=== PATIENT | female | born 2000 | race Caucasian/White ===

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

== ENCOUNTER 2022-04-05 06:59 | Emergency (ER) | payer MEDICAID, SELFPAY ==
--- NOTE | 2022-04-05 07:05 | W.ED.GENADLT ---
HPI - General Adult General: Chief complaint: General Medical Stated complaint: N/V from new medicine Time Seen by Provider: 04/05/22 07:05 History of Present Illness: Ms. Campoverde is a 21-year-old lady with history of anxiety disorder presenting to the emergency department due to GI symptoms. She reports starting venlafaxine for anxiety yesterday morning and since that time has noticed multiple episodes of watery diarrhea associated with abdominal cramping and generalized malaise with nausea. Has had 1 episode of chills however no measured fevers. No respiratory symptoms. Intensity symptoms moderate. Course has persisted. No history of abdominal surgeries. No other specific changes in health, exacerbating, or alleviating factors identified. Onset (ago): hour(s) Location: abdomen Radiation: non-radiation Severity: moderate Quality: other (Cramping) Pain Consistency: intermittent Associated symptoms: Reports nausea and other (Diarrhea) Review of Systems General: Reports: 10 or more systems reviewed and unremarkable except in HPI and below GI: Reports: nausea PFSH ED PFSH: Medical History 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--- has neurologist in [facility] History of anxiety Irritable bowel syndrome with constipation and diarrhea Migraine without aura No pertinent past medical history neghx: htn,dm,thyroid,dvt/pe,herpes ---denies partner with herpes Surgical History No pertinent past surgical history Family History Grandfather Heart disease Paternal Stroke Paternal Mother Hypertension Denies family history of Colon cancer Ovarian cancer Diabetes Breast cancer Bleeding disorder Uterine cancer Thyroid disease Social History Smoking and tobacco status: current every day smoker (daily vape with nicotine) Alcohol intake: never Physical Exam Const: COMMON NORMALS: alert GENERAL APPEARANCE: cooperative and well developed HENMT: COMMON NORMALS: normocephalic and atraumatic HEAD & SCALP: normocephalic and atraumatic Eye: COMMON NORMALS: conjunctivae normal CONJUNCTIVA: Yes conjunctivae normal SCLERA: sclerae normal Neck/C-Spine: COMMON NORMALS: supple GENERAL: Yes trachea midline Resp: COMMON NORMALS: clear to auscultation bilaterally EFFORT & INSPECTION: Yes able to speak in complete sentences AUSCULTATION: clear to auscultation bilaterally Cardio: COMMON NORMALS: regular rhythm RATE: tachycardic RHYTHM: regular rhythm GI: COMMON NORMALS: Soft to palpation PALPATION: Yes Soft to palpation and No Tenderness to palpation present (GI) Extremity: GENERAL: Yes normal exam except as noted and No edema Neuro: COMMON NORMALS: moves all extremities SENSORIUM/ORIENTATION: Yes alert and No Orientation impaired Psych: COMMON NORMALS: mental status grossly normal and Normal thought process present THOUGHT PROCESS: Normal thought process present Course Vital Signs: Vital signs: Vital Signs Temperature 97.6 F 04/05/22 07:17 Pulse Rate 85 04/05/22 09:33 Respiratory Rate 16 04/05/22 07:17 Blood Pressure 117/58 04/05/22 09:33 Pulse Oximetry 96 04/05/22 09:33 Oxygen Delivery Me thod 04/05/22 08:19 [facility] - General Adult Medical Decision Making 21-year-old female presenting with GI concerns in the context of recent started medication. Mild tachycardia noted on initial exam, patient is nontoxic. Laboratory studies with unremarkable hematologic panel, metabolic panel with perhaps mild evidence of dehydration, glucose low and patient able to tolerate p.o. intake. hCG and COVID-negative. Patient feels significantly improved with Toradol, fluids, Zofran. Given improvement in based on physical exam and provided history I do not feel that imaging is required at this time. Most likely etiology of symptoms is unclear, perhaps medication side effect versus viral syndrome. The results of ED evaluation were discussed with the patient including prescriptions and/or symptomatic cares (if applicable) including appropriate and responsible use, followup plan, and return precautions. The patient verbalized understanding and felt safe for discharge. Medical Records I reviewed the patient's medical records. Lab Data I reviewed the patient's lab results. : 04/05/22 07:38 04/05/22 07:38 Laboratory Results WBC 8.6 10^3/uL (4.5-13.0) 04/05/22 07:38 RBC 4.78 10^6/uL (4.1-5.3) 04/05/22 07:38 Hgb 14.7 g/dL (11.5-15.3) 04/05/22 07:38 Hct 43.4 % (37.0-47.0) 04/05/22 07:38 MCV 90.8 fl (81-99) 04/05/22 07:38 MCH 30.8 pg (28.0-34.0) 04/05/22 07:38 MCHC 33.9 g/dL (30.0-36.0) 04/05/22 07:38 RDW 11.7 % (12.1-15.1) L 04/05/22 07:38 Plt Count 357 10^3/cmm (130-400) 04/05/22 07:38 MPV 9.1 fL (7.4-10.4) 04/05/22 07:38 Neut % (Auto) 83.8 % 04/05/22 07:38 Lymph % (Auto) 12.1 % 04/05/22 07:38 [place] % (Auto) 3.0 % 04/05/22 07:38 Eos % (Auto) 0.1 % 04/05/22 07:38 Baso % (Auto) 0.5 % 04/05/22 07:38 Neut # (Auto) 7.19 10^3/uL (1.8-8.0) 04/05/22 07:38 Lymph # (Auto) 1.0 10^3/uL (1.5-6.5) L 04/05/22 07:38 [place] # (Auto) 0.3 10^3/uL (0.2-0.9) 04/05/22 07:38 Eos # (Auto) 0.0 10^3/uL (0.0-0.8) 04/05/22 07:38 Baso # (Auto) 0.0 10^3/uL (0.0-0.1) 04/05/22 07:38 Nucleated RBC % (auto) 0 % 04/05/22 07:38 Nucleated RBCs # 0.0 /100WBC 04/05/22 07:38 Sodium 138 mmol/L (136-145) 04/05/22 07:38 Potassium 4.0 mmol/L (3.5-5.1) 04/05/22 07:38 Chloride 101 mmol/L (98-107) 04/05/22 07:38 Carbon Dioxide 18 mmol/L (22-29) L 04/05/22 07:38 Anion Gap 23.0 (5-19) H 04/05/22 07:38 BUN 14 mg/dL (6-20) 04/05/22 07:38 Creatinine 0.5 mg/dL (0.5-0.9) 04/05/22 07:38 GFR Calculation 157.3 mL/min (90-130) H 04/05/22 07:38 Glucose 59 mg/dL (65-115) L 04/05/22 07:38 Calculated Osmolality 284 mOsm/kg (285-295) L 04/05/22 07:38 Calcium 9.5 mg/dL (8.5-10.5) 04/05/22 07:38 Total Bilirubin 0.8 mg/dL (0.15-1.2) 04/05/22 07:38 AST 18 U/L (0-32) 04/05/22 07:38 ALT 14 U/L (0-33) 04/05/22 07:38 Alkaline Phosphatase 84 U/L (35-105) 04/05/22 07:38 Total Protein 8.3 g/dL (6.6-8.7) 04/05/22 07:38 Albumin 5.0 g/dL (3.5-5.2) 04/05/22 07:38 Globulin 3.3 g/dL (1.3-4.6) 04/05/22 07:38 Lipase 27 U/L (13-60) 04/05/22 07:38 HCG, Qual Negative (Negative) 04/05/22 07:38 SARS-CoV-2 Ag (Rapid) negative (Negative) 04/05/22 07:40 Discharge Plan Discharge Patient Disposition: Home Clinical Impression: Abdominal pain, Nausea, Diarrhea, Dehydration Condition: Stable Prescriptions: No Action venlafaxine [Effexor XR] 37.5 mg capsule,extended release 24hr 37.5 mg PO DAILY Qty: 30 0RF Discharge Orders: Discharge ED (Routine); Ordered 04/05/22 Ordered By: Yonas Vlilegas Referrals: Trina Florence DO [Primary Care Provider] - Discharge Diet: Advance as tolerated and Clear Liquid Discharge Activity: Increase activity as tolerated Patient Instructions: Dehydration (ED), Abdominal Pain (ED) Activity Restrictions/Additional Instructions: Thank you for visiting the emergency department. You were seen and evaluated for abdominal discomfort, nausea, and diarrhea. The exact cause of your symptoms is unclear though may be related to either medication or viral syndrome. Based on ED evaluation and improvement with treatment I do believe that outpatient management is appropriate. Please follow-up with your primary care provider. Please also ensure that you are staying hydrated as labs did show some evidence of dehydration. Return to the emergency department for worsening symptoms despite treatment, fevers, inability to tolerate oral intake, worsening abdominal pain, right lower quadrant or pelvic pain, or anything else that you are concerned about a feel needs emergency department evaluation. Coding Level of Care Code ED [employer] for Romi Fwd Exam Comprehensive
[2022-04-05 07:17] VITALS: BP 116/66; PULSE 106; RESP 16; TEMP 36.4; O2SAT 97; BMI 16.9
[2022-04-05] MEDS: sodium chloride 0.9% 1,000 ML 999 ML IV (07:54)
[2022-04-05] MEDS: ondansetron 2 mg/ML SDV 2 mL 4 MG IVP (07:55)
[2022-04-05 08:05] LABS: Basophils % 0.5 %; Eosinophils % 0.1 %; Hematocrit 43.4 % (37.0-47.0); Hemoglobin 14.7 g/dL (11.5-15.3); Lymphocytes % 12.1 %; Mean Corpuscular HGB Conc 33.9 g/dL (30.0-36.0); Mean Corpuscular Hemoglobin 30.8 pg (28.0-34.0); Mean Corpuscular Volume 90.8 fl (81-99); Mean Platelet Volume 9.1 fL (7.4-10.4); Monocytes # 0.3 10^3/uL (0.2-0.9); Neutrophils # 7.19 10^3/uL (1.8-8.0); Neutrophils % 83.8 %; Nucleated Red Blood Cells % 0 %; Platelet Count 357 10^3/cmm (130-400); Red Blood Count 4.78 10^6/uL (4.1-5.3); Red Cell Distribution Width 11.7 % (12.1-15.1); White Blood Count 8.6 10^3/uL (4.5-13.0)
[2022-04-05 08:19] VITALS: BP 114/62; O2SAT 99
[2022-04-05 08:19] LABS: HCG, Serum Qual Negative (Negative)
[2022-04-05 08:26] LABS: SARS Covid-2 Antigen negative (Negative)
[2022-04-05 08:27] LABS: Alanine Aminotransferase 14 U/L (0-33); Alkaline Phosphatase 84 U/L (35-105); Aspartate Amino Transferase 18 U/L (0-32); Blood Urea Nitrogen 14 mg/dL (6-20); Calcium 9.5 mg/dL (8.5-10.5); Carbon Dioxide 18 mmol/L (22-29); Chloride 101 mmol/L (98-107); Globulin 3.3 g/dL (1.3-4.6); Glomerular Filtration Rate 157.3 mL/min (90-130); Glucose 59 mg/dL (65-115); Lipase 27 U/L (13-60); Osmolality Calculated 284 mOsm/kg (285-295); Sodium 138 mmol/L (136-145); Total Bilirubin 0.8 mg/dL (0.15-1.2); Total Protein 8.3 g/dL (6.6-8.7)
--- NOTE | 2022-04-05 08:50 | PC.NURSE ---
pt given juice for PO challenge, Dr. Villegas aware of pt's blood sugar.
[2022-04-05 09:33] VITALS: BP 117/58; PULSE 85; O2SAT 96
== END 2022-04-05 09:35 | disposition home or self-care (01) ==
PROVIDERS: Emergency Provider Emergency Medicine; PCP Family Medicine
DX: R10.9 Unspecified abdominal pain (principal); R19.7 Diarrhea, unspecified; R11.0 Nausea; E86.0 Dehydration; Z20.822 Contact with and (suspected) exposure to COVID-19; F17.290 Nicotine dependence, other tobacco product, uncomplicated
CPT/HCPCS: 80053; 83690; 84703; 85025; 87426; 96361; 96374; 99284; J2405; J7030

== ENCOUNTER 2022-11-03 10:17 | Outpatient (CLI) | payer MEDICAID, SELFPAY ==
--- NOTE | 2022-11-03 10:27 | US_ITS ---
WS: [id number] Exam: US OB <= 14 weeks fetus [id number] Date/Time of Exam: 11/03/2022 10:29 AM Reason For Exam: EXXPOSURE TO TERATOGEN. SUPERVISION OF OTHER HIGH RISK NUMBER: One PRESENTATION: Variable CARDIAC ACTIVITY: 167 MOVEMENT: Satisfactory AMNIOTIC FLUID VOLUME: Subjectively normal PLACENTA: Not applicable ESTIMATED GESTATIONAL AGE: 11w3d Bootjack-rump length measurements average 4.5 cm consistent with gestational age of 11 weeks 3 days Not applicable US/US OB <= 14 weeks fetus [id number] IMPRESSION: Viable intrauterine with single fetus estimated at 11w3d 05/22/2023.
== END 2022-11-03 10:18 | disposition home or self-care (01) ==
LOC: RAD 10:18
PROVIDERS: PCP Family Medicine; Visit Provider Family Medicine
DX: O09.891 Supervision of other high risk pregnancies, first trimester (principal); O35.8XX0 Maternal care for other (suspected) fetal abnormality and damage, not applicable or unspecified; Z3A.11 11 weeks gestation of pregnancy
CPT/HCPCS: 76801

== ENCOUNTER 2022-12-25 12:37 | Outpatient (CLI) | payer MEDICAID, SELFPAY ==
--- NOTE | 2022-12-25 12:53 | US_ITS ---
WS: [id number] ULTRASOUND OB COMPLETE TECHNIQUE: Complete ultrasound. CLINICAL INFORMATION: ANATOMY CHECK/HX OF LABOR/HIGH RISK COMPARISON: November 03, 2022 FINDINGS: Cervix appears long and closed measuring 4.3 cm. Single interuterine gestation is identified with breech presentation. Placenta is anterior. Placenta grade 0. Normal amniotic fluid volume. cardiac activity: 147 BPM. AGA: 19w0d PETER by ultrasound: 05/21/2023 Estimated weight: 278 g; 0 lbs. 10 oz. BDP: 4.2 cm = 18w6d HC: 15.9 cm = 18w5d AC: 14.2 cm = 19w4d FEMUR LENGTH: 2.9 cm = 18w6d Anatomic survey: Limited evaluation of the outflow tracts. Anatomic survey is otherwise normal. Normal stomach. Kidneys and bladder are normal. Normal 3 vessel cord. Normal 3 vessel cord insertion. Normal 4 chamber heart. Normal spine. Intracranial contents are normal. Normal posterior fossa and cisterna magna. US/US OB >= 14 weeks fetus [id number] IMPRESSION: 1. Single intrauterine with visualized cardiac activity. AGA 19w0d w ith PETER 05/21/2023. 2. Placenta is anterior. No evidence of abruption or previa. 3. presentation is breech. 4. Limited evaluation of the ventricular outflow tracts. anatomic survey is otherwise normal. 5. Normal amniotic fluid volume.
== END 2022-12-25 12:38 | disposition home or self-care (01) ==
LOC: RAD 12:38
PROVIDERS: PCP Family Medicine; Visit Provider Family Medicine
DX: O09.891 Supervision of other high risk pregnancies, first trimester (principal); Z87.51 Personal history of pre-term labor; Z3A.00 Weeks of gestation of pregnancy not specified
CPT/HCPCS: 76805

== ENCOUNTER 2023-02-02 07:28 | Outpatient (CLI) | payer MEDICAID, SELFPAY ==
--- NOTE | 2023-02-02 07:39 | US_ITS ---
WS: [id number] LIMITED OBSTETRICAL ULTRASOUND HISTORY: HIGH RISK -2ND TRIMESTER/INCOMPLETE ANATOMY SCAN COMPARISON: 11/03/2022 and 12/25/2022 Presentation: Vertex. Cervix: Closed and normal length. Placenta: Anterior, no previa or abruption. Grade: 1 HEART: FHR of 157 BPM. measurements: BPD = 6.1 cm = 24w6d; HC = 22.2 cm = 24w2d; AC = 20.4 cm = 25w0d; FL = 4.5 cm = 24w5d; Normal amniotic fluid. EFW: 741 g; 50th percentile AGA by ultrasound: 24w5d PETER by ultrasound: 05/20/2023 Biometry is concordant. No growth asymmetry. Additional imaging of the heart is submitted. Normal four-chamber heart. Normal LVOT and RVOT. Normal three-vessel view. Very good demonstration of the heart. IMPRESSION: 1. Single intrauterine gestation of 24 weeks 5 days with an EDC of 05/20/2023. 2. Normal growth since the first trimester ultrasound. 3. Normal imaging of the heart.
== END 2023-02-02 07:29 | disposition home or self-care (01) ==
LOC: RAD 07:29
PROVIDERS: PCP Family Medicine; Visit Provider Family Medicine
DX: O09.892 Supervision of other high risk pregnancies, second trimester (principal); Z3A.24 24 weeks gestation of pregnancy
CPT/HCPCS: 76816

== ENCOUNTER 2023-04-23 06:31 | Outpatient (CLI) | payer MEDICAID, SELFPAY ==
[2023-04-23 06:40] VITALS: BP 116/73; PULSE 81; TEMP 35.8
[2023-04-23 06:52] VITALS: BMI 21.3
[2023-04-23 06:52] LABS: Nitrazine Paper, PH Negative
[2023-04-23 07:00] VITALS: BP 108/67; PULSE 87; TEMP 35.9
[2023-04-23 07:02] VITALS: BP 108/67; PULSE 87; TEMP 35.9
== END 2023-04-23 07:06 | disposition home or self-care (01) ==
LOC: OPOB 06:31 → OBGYN 06:32
PROVIDERS: PCP Family Medicine; Visit Provider Family Medicine
DX: O26.899 Other specified pregnancy related conditions, unspecified trimester (principal); Z3A.00 Weeks of gestation of pregnancy not specified; N89.8 Other specified noninflammatory disorders of vagina
CPT/HCPCS: 59025; 83986; 99211

== ENCOUNTER 2023-04-29 03:26 | Inpatient (IN) | payer MEDICAID, SELFPAY ==
[2023-04-29] VITALS (134 sets, daily range): BP systolic 76–129; BP diastolic 46–94; PULSE 54–137; RESP 16–18; TEMP 36.2–37.1; O2SAT 86–100; BMI 20.6
[2023-04-29 01:55] LABS: Basophils # 0.1 10^3/uL (0.0-0.1); Basophils % 0.5 %; Eosinophils # 0.1 10^3/uL (0.0-0.8); Eosinophils % 0.5 %; Hematocrit 35.6 % (36-47); Lymphocytes # 3.1 10^3/uL (0.8-4.8); Lymphocytes % 23.8 %; Mean Corpuscular HGB Conc 32.3 g/dL (30-55); Mean Corpuscular Hemoglobin 28.5 pg (27-33); Mean Corpuscular Volume 88.1 fl (85-98); Mean Platelet Volume 9.8 fL (7.4-10.4); Monocytes # 0.9 10^3/uL (0.2-0.9); Monocytes % 6.9 %; Neutrophils # 8.63 10^3/uL (1.8-7.7); Neutrophils % 66.6 %; Nucleated Red Blood Cells % 0 %; Platelet Count 394 10^3/cmm (157-399); Red Blood Count 4.04 10^6/uL (3.85-5.65); Red Cell Distribution Width 12.5 % (12.1-15.1); White Blood Count 12.95 10^3/uL (3.29-11.43)
[2023-04-29 02:27] LABS: Amphetamines Screen Urine Negative (Negative); Barbiturates Screen Urine Negative (Negative); Benzodiazepines Screen Urine Negative (Negative); Cocaine Screen Urine Negative (Negative); Opiate Screen Urine Negative (Negative); PCP Screen Urine Negative (Negative); THC Screen Urine Negative (Negative)
[2023-04-29] MEDS: lactated ringers 1,000 ML 999 ML IV ×3 (04:40→07:25)
--- NOTE | 2023-04-29 05:53 | P.ANESASSM_ITS ---
Pre-Anesthetic Assessment Height/Weight: Height 1.57 m Weight 51.256 kg Temp Pulse Resp BP Pulse Ox O2 Del Method 97.1 F L 73 16 114/56 100 Room Air 04/29/23 00:05 04/29/23 05:50 04/29/23 00:05 04/29/23 05:50 04/29/23 05:47 04/29/23 01:09 Familial anesthetic complications: none Was Beta Aris taken within 24 hours: N/A Was Clonidine taken within 24 hours: N/A Social No alcohol and No tobacco Exam alert, oriented x 3, clear to auscultation bilaterally and regular rate & rhythm Airway Submandibular: within normal limits Cervical ROM: within normal limits Mallampati: Class II Dentition: full GI Gastroesophageal Reflux Disease Neuropsych Bipolar Anesthetic Plan ASA status: 2 Anesthesia: Regional (specify below) (Labor Epidural) Medications/Allergies Home Medications Medication Instructions Recorded Confirmed Last Taken Type 1 tab PO DAILY 04/23/23 04/29/23 04/28/23 History Allergies Allergy/AdvReac Type Severity Reaction Status Date / Time No Known Allergies Allergy Verified 04/29/23 01:12 Current Medications Generic Name Dose Route Start Last Admin Trade Name Freq PRN Reason Stop Dose Admin Lactated Ringer's 1,000 mls @ 999 mls/hr 04/29/23 04:16 04/29/23 05:41 Lactated Ringers IV 999 mls/hr .Q1H1M PRN Administration See label comments [facility] Anesthesia Medical History 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--- has neurologist in [facility] History of anxiety Irritable bowel syndrome with constipation and diarrhea Migraine without aura No pertinent past medical history neghx: htn,dm,thyroid,dvt/pe,herpes ---denies partner with herpes Surgical History No pertinent past surgical history Family History Grandfather Heart disease Paternal Stroke Paternal Mother Hypertension Denies family history of Colon cancer Ovarian cancer Diabetes Breast cancer Bleeding disorder Uterine cancer Thyroid disease Social History (Reviewed 08/25/22 @ 15:24 by TEJAS Giron Smoking and tobacco/nicotine status: current every day tobacco/nicotine user (daily vape with nicotine) Alcohol intake: never Substance/Drug Use: never Female Reproductive History : 2 Data Anesthesia 04/29/23 01:28 Short CBC 04/29/23 Range/Units 01:28 WBC 12.95 H (3.29-11.43) 10^3/uL Hgb 11.50 (11.27-16.99) g/dL Hct 35.6 L (36-47) % MCV 88.1 (85-98) fl Plt Count 394 (157-399) 10^3/cmm Neut % (Auto) 66.6 % Neut # (Auto) 8.63 H (1.8-7.7) 10^3/uL Blood Bank 04/29/23 01:28 Blood Type A Positive Rho(D) Type Rh positive Antibody Screen Negative Cardiac Studies: No Data to Display Anesthesia Procedures Epidural Time Out Performed: Yes Consents Signed: Procedure Consent Consent: requested by attending/covering physician, from patient, risks and benefits reviewed and patient agrees to proceed Lumbar Level: L3-L4 Epidural position: sitting Epidural procedure: sterile prep of area, 1% lidocaine to numb the area, 18 g needle, neg for paresthesia, test dose given, 1.5% xylocaine 1:200k epi, placed PCEA, sterile dressing applied and 0.2% Ropiavacaine @ mls/hr (10) Additional Comments: ORLIN at 3cm, cath at 8cm, bolused 5mls of 2% lido PF
[2023-04-29] MEDS: ROPivacaine syringe 100 MG/50 ML SYRINGE 10 MG EPIDURAL (08:35)
[2023-04-29] MEDS: dextrose 5%-lactated ringers 1,000 ML 125 ML IV (08:36)
[2023-04-29] MEDS: ondansetron 2 mg/ML SDV 2 mL 4 MG IVP (08:36)
--- NOTE | 2023-04-29 08:53 | P.HP_ITS ---
Providers/Chief Complaint Admitting Physician: Candi Live DO Primary Care Provider: Trina Florence DO Chief Complaint: Possible ROM HPI EVALUATOR TRANSFER STUDENTS History of Present Illness Maty Campoverde is a 22 year old female at 37w2d presenting for leaking fluid starting at approx 11:30 pm. PMHx significant for anxiety, migrianes, delivery with prior . Denies cramping/contractions, vaginal bleeding. Good movement. care was good and starting in the first trimester. Found on presentation to L&D to be grossly ruptured with clear fluids. Present Details : 2 Para: 1 Labs Rubella: Immune RPR: Negative GBS: Negative HBsAG: Negative Other Lab Information: HIV negative Hep C ab negative GC/chlam negative Initial H/H 13.6/38.1 Pap smear NILM 3rd trimester H/H 11.7/34.5 Review of Systems Const: Denies: fever(s) or chills Card: Denies: chest pain or palpitations Resp: Denies: dyspnea Medications/Allergies Home Medications Medication Instructions Recorded Confirmed Last Taken Type 1 tab PO DAILY 04/23/23 04/29/23 04/28/23 History Allergies Allergy/AdvReac Type Severity Reaction Status Date / Time No Known Allergies Allergy Verified 04/29/23 01:12 PFSH EVALUATOR TRANSFER STUDENTS PFSH: Medical History 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--- has neurologist in [facility] History of anxiety Irritable bowel syndrome with constipation and diarrhea Migraine without aura No pertinent past medical history neghx: htn,dm,thyroid,dvt/pe,herpes ---denies partner with herpes Surgical History No pertinent past surgical history Family History Grandfather Heart disease Paternal Stroke Paternal Mother Hypertension Denies family history of Colon cancer Ovarian cancer Diabetes Breast cancer Bleeding disorder Uterine cancer Thyroid disease Social History Smoking and tobacco/nicotine status: current every day tobacco/nicotine user (daily vape with nicotine) Alcohol intake: never Substance/Drug Use: never Other Female Reproductive History: Hx Age of Menarche: 15 Duration of menses: 3-5 days Cycle Length: regular prior to Depo Menstrual flow: normal/abnormal: normal History History History 2 Term 0 1 Miscarriages/Ectopic 0 Living Children 1 Vitals/I&O/Wt Last Vital Signs Temp 97.1 F L 04/29/23 00:05 Pulse 90 04/29/23 08:51 Resp 16 04/29/23 00:05 BP 104/58 04/29/23 08:51 Pulse Ox 100 04/29/23 08:47 O2 Del Method Room Air 04/29/23 01:09 04/28/23 04/29/23 04/29/23 22:59 06:59 14:59 Intake Total 1000 / 1000 Balance 1000 / 1000 Weight last 48 hrs Weight 113 lb Weight 113 lb Physical Exam 2 Const: COMMON NORMALS: no acute distress, alert and well nourished Resp: COMMON NORMALS: normal respiratory effort, No retractions and clear to auscultation bilaterally Cardio: COMMON NORMALS: regular rate, regular rhythm, S1 normal heart sound present, S2 normal heart sound present and No murmurs present (Cardio) Extremity: NARRATIVE EXTREMITY EXAM: No LE edema Urinary Catheter Management: Coyle: Cath Placed During This Visit: yes Reason for Continuing Indwelling Catheter: Required Immobilization for Trauma or Surgery or Anesthesia Urinary Catheter Date of Insertion: 04/29/23 Urinary Catheter Time of Insertion: 06:00 Data 04/29/23 01:28 Results Labs OB ([facility]): Obstetrics US 02/02/23 Blood Type A Positive 04/29/23 Antibody Screen Negative 04/29/23 Hct 35.6 % (36-47) L 04/29/23 Hgb 11.50 g/dL (11.27-16.99) 04/29/23 Rho(D) Type Rh positive 04/29/23 Plt Count 394 10^3/cmm (157-399) 04/29/23 Hep Bs Antigen Non-reactive (Nonreactive) 05/03/20 Hepatitis C Antibody Non-reactive (Nonreactive) 05/03/20 Rubella IgG Antibody 41.6 IU/mL (0.0-10.0) H 05/03/20 RPR Nonreactive (Nonreactive) 05/03/20 HIV 1&2 Ab & HIV 1 Ag Non-reactive (Non-Reactiv) 05/03/20 TSH 1.39 uIU/mL (0.27-4.20) 10/15/20 Gest Glucose Tolerance mg/dL 08/25/20 VZV IgG Antibody 578.40 index 07/12/20 HCG, Qual Negative (Negative) 04/05/22 Urine Opiates Screen Negative ng/mL (Negative) 04/29/23 Ur Barbiturates Screen Negative ng/mL (Negative) 04/29/23 Ur Phencyclidine Scrn Negative ng/mL (Negative) 04/29/23 Ur Amphetamines Screen Negative ng/mL (Negative) 04/29/23 U Benzodiazepines Scrn Negative ng/mL (Negative) 04/29/23 Urine Cocaine Screen Negative ng/mL (Negative) 04/29/23 U Marijuana (THC) Screen Negative ng/mL (Negative) 04/29/23 Micro Urine Specimen 11/02/20 A&P Assessment and plan (1) Term : (2) Spontaneous rupture of amniotic membranes: Plan Admit for labor. Plan to start pitocin if no cervical traveler changer an interval. Routine CBC. Fentanyl protocol. May have epidural when desired. Category 1 FHT. Intermittent EFM until epidural. Attestations Medical Necessity Statement*: Maty Campoverde's hospital stay will require greater than 2 midnights for routine labor and delivery and care. Coding Level of Care Code Acute Code for Chg Fwd Diagnoses Term Z34.90 Spontaneous rupture of amniotic membranes
[2023-04-29] MEDS: oxytocin 30 UNIT/500 ML BAG 600 UNIT IV (09:44)
--- NOTE | 2023-04-29 09:59 | PM.DELIVERY ---
Delivery Note: Date of delivery: April 29, 2023 Pre-delivery diagnoses: Spontaneous rupture of membranes Term Post-delivery diagnoses: Delivery of term female Procedure: Spontaneous Vaginal Delivery Delivering Physician: Candi Live DO Estimated blood loss (mL): 150 Pre-Delivery Course: Admitted after SROM at home at approx 11pm on 04/28/23. Progressed spontaneously to complete appropriately. Delivery: Patient progressed to complete. Patient placed in lithotomy position. Patient pushed with adequate effort. Noted to have approx 2 minute FHT bradycardia and patient consented for vaccum- prior to application of vacuum bradycardia resolved and a vacuum was not used. Head delivered in ADA position, no nuchal cord was present. Shoulders and rest of body delivered without difficulty with epidural anesthesia. placed on maternal abdomen. Mouth and nares bulb suctioned. Cord clamped and cut after 1 minute delay. Placenta spontaneously delivered and intact. Pitocin started. Fundus was noted to be firm. The vagina and cervix were inspected and no lacerations were noted. Fundus was again noted to be firm. Of note following delivery- cluster of vesicular lesions noted to right external labia. Lesions swabbed for viral culture. Female born at 9:41 am with 9/9 weighing 5lb 13oz and measuring 19 in length Placenta noted to be intact with centrally inserted umbilical cord and 3 vessel cord. Complications: Maternal none none History History History 2 Term 0 1 Miscarriages/Ectopic 0 Living Children 1 Coding Level of Care Code Acute Code for Chg Fwd Diagnoses
--- NOTE | 2023-04-29 13:21 | ANE.PACU2 ---
Inpatient post-anesthesia follow up: Airway intact: Yes Vital signs: Temperature 97.1 F Pulse Rate 76 Respiratory Rate 16 Blood Pressure 94/52 Pulse Oximetry 100 Oxygen Delivery Me thod Room Air Oxygen Flow Rate Fraction of Inspir ed Oxygen Hydration adequate: Yes Nausea and vomiting: No Pain level: 2 Mental status: Baseline Additional Comments: Anes start 04/29/23 0530 Anes end 04/29/23 [id number]
[2023-04-29] MEDS: ibuprofen 800 mg tablet PO ×2 (15:28→21:27)
[2023-04-29] MEDS: acyclovir 400 mg Tablet PO ×2 (15:29→21:27)
[2023-04-29] MEDS: docusate sodium 100 mg Capsule PO (19:12)
[2023-04-29] MEDS: acetaminophen 325 mg Tablet 650 MG PO (19:15)
[2023-04-29 21:52] LABS: Hematocrit 34.3 % (36-47); Mean Corpuscular HGB Conc 32.1 g/dL (30-55); Mean Corpuscular Hemoglobin 28.3 pg (27-33); Mean Corpuscular Volume 88.2 fl (85-98); Mean Platelet Volume 9.7 fL (7.4-10.4); Platelet Count 378 10^3/cmm (157-399); Red Blood Count 3.89 10^6/uL (3.85-5.65); Red Cell Distribution Width 12.7 % (12.1-15.1); White Blood Count 13.61 10^3/uL (3.29-11.43)
[2023-04-30 04:00] VITALS: BP 116/74; PULSE 69; RESP 18; TEMP 36.6
--- NOTE | 2023-04-30 07:33 | P.PN_ITS ---
PARTITION NOTCHER Subjective Subjective: Interval history: Patient has been doing well overnight. well. Normal urination. Has not yet had a bowel movement. Eating without nausea. Vaginal bleeding is decreasing and reports amount is just slightly more than a period. Having some soreness, but otherwise no pain. Denies vaginal tingling, pain, or itching. She again denies any prior history of HSV lesions or exposure to HSV. Labor: Station: +1 Amniotic Membrane Status: Ruptured Monitor Mode: Palpation Contraction Pattern: Regular Status: Category I Vitals/I&O/Wt Last Vital Signs Temp 97.8 F 04/30/23 04:00 Pulse 69 04/30/23 04:00 Resp 18 04/30/23 04:00 BP 116/74 04/30/23 04:00 Pulse Ox 97 04/29/23 14:40 O2 Del Method Room Air 04/30/23 04:00 04/29/23 04/30/23 04/30/23 22:59 06:59 14:59 Intake Total 1000 / 3520 Output Total 500 / 500 Balance 500 / 3020 Weight last 48 hrs Weight 113 lb Weight 113 lb Physical Exam Const: COMMON NORMALS: no acute distress, alert and well nourished Resp: COMMON NORMALS: normal respiratory effort, No retractions and clear to auscultation bilaterally AUSCULTATION: clear to auscultation bilaterally Cardio: COMMON NORMALS: regular rate, regular rhythm, S1 normal heart sound present, S2 normal heart sound present and No murmurs present (Cardio) RATE: regular rate RHYTHM: regular rhythm HEART SOUNDS: S1 normal heart sound present and S2 normal heart sound present : OTHER: Fundus firm and below the umbilicus Extremity: NARRATIVE EXTREMITY EXAM: No LE edema Neuro: SENSORIUM/ORIENTATION: Yes alert Urinary Catheter Management: Coyle: Cath Placed During This Visit: yes, but has since been removed by the nurse Reason for Continuing Indwelling Catheter: Decision to DC Catheter Urinary Catheter Date of Insertion: 04/29/23 Urinary Catheter Time of Insertion: 06:00 Date Urinary Catheter Removed: 04/29/23 Time Urinary Catheter Discontinued: 09:29 Data 04/29/23 21:40 A&P Assessment and plan (1) Spontaneous vaginal delivery: PPD#1 s/p complicated by presumed active HSV lesions without prior history. Otherwise uncomplicated delivery. Routine care. Normal diet, encourage ambulation, may shower. Anticipate discharge tomorrow. (2) Herpes simplex virus (HSV) infection of vagina: Presumed infection due to appearance of vaginal lesions discovered after delivery. Treating with acyclovir. Discussed importance of contact precautions and handwashing precautions. Attestations Medical Necessity Statement*: Maty Campoverde's hospital stay will require greater than 2 midnights for routine labor and delivery and care. Coding Level of Care Code Acute Code for [facility] Fwd Diagnoses Spontaneous vaginal delivery O80 Herpes simplex virus (HSV) infection of vagina A60.04
[2023-04-30] MEDS: prenatal vitamin Capsule 1 CAP PO (08:21)
[2023-04-30] MEDS: ibuprofen 800 mg tablet PO ×3 (08:21→20:25)
[2023-04-30] MEDS: docusate sodium 100 mg Capsule PO ×2 (08:22→18:03)
[2023-04-30] MEDS: acyclovir 400 mg Tablet PO ×3 (09:35→20:45)
[2023-04-30 14:09] LABS: HSV 1 IGG Type Specific AB <0.90 index
[2023-04-30 15:11] VITALS: BP 104/57; PULSE 70; RESP 16; TEMP 36.8; O2SAT 98
[2023-04-30] MEDS: lanolin oint 7 gm 1 APPLIC TOPICAL (15:15)
[2023-04-30 22:00] VITALS: BP 100/51; PULSE 63; RESP 16; TEMP 36.4; O2SAT 98
--- NOTE | 2023-05-01 08:49 | PC.NURSE ---
[facility] down from [id number]. Paper documentation placed in paper chart.
[2023-05-01] MEDS: prenatal vitamin Capsule 1 CAP PO (09:18)
[2023-05-01] MEDS: docusate sodium 100 mg Capsule PO (09:18)
[2023-05-01] MEDS: ibuprofen 800 mg tablet PO ×2 (09:18→15:50)
[2023-05-01 09:20] VITALS: BP 100/55; PULSE 80; RESP 15; TEMP 36.9
--- NOTE | 2023-05-01 09:37 | P.DS_ITS ---
Discharge Providers VICE PRESIDENT CLIENT SERVICES Date of Admission: 04/29/23 03:26 Date of Discharge: 05/01/23 Attending Provider at Admission: Candi Live DO Attending Provider at Discharge: Candi Live DO Primary Care Provider: Trina Florence DO Diagnoses at Discharge Discharge Diagnosis (1) Spontaneous vaginal delivery: Status: Acute (2) Herpes simplex virus (HSV) infection of vagina: Status: Acute Reason for Visit Reason for Visit: Possible ROM Hospital Course Hospital Course * Pre-Delivery Course: Admitted after SROM at home at approx 11pm on 04/28/23. Progressed spontaneously to complete appropriately. Delivery: Patient progressed to complete. Patient placed in lithotomy position. Patient pushed with adequate effort. Noted to have approx 2 minute FHT bradycardia and patient consented for vaccum- prior to application of vacuum bradycardia resolved and a vacuum was not used. Head delivered in ADA position, no nuchal cord was present. Shoulders and rest of body delivered without difficulty with epidural anesthesia. Infant placed on maternal abdomen. Mouth and nares bulb suctioned. Cord clamped and cut after 1 minute delay. Placenta spontaneously delivered and intact. Pitocin started. Fundus was noted to be firm. The vagina and cervix were inspected and no lacerations were noted. Fundus was again noted to be firm. Of note following delivery- cluster of vesicular lesions noted to right external labia. Lesions swabbed for viral culture. Female born at 9:41 am with 9/9 weighing 5lb 13oz and measuring 19 in length Placenta noted to be intact with centrally inserted umbilical cord and 3 vessel cord. Complications: Maternal none Infant none Post-Delivery Course: Patient underwent on 04/29/23. course was complicated by presumed HSV infection noted after delivery. Started on acyclovir treatment. Following delivery patient ambulated well, tolerated a normal diet without nausea or vomiting. Pain was well controlled on PO medications, well, no leg/calf pain, no calf/leg swelling, normal urination, passing gas and normal bowel movements. Vaginal bleeding minimal and decreasing. labs significant for hemoglobin of 11 down from 11.5 on admission. Follow-up planned for 2 and 6 weeks . Warning signs for endometritis, pre-eclampsia, D VT/PE, mastitis were reviewed, discussed additional warning signs including increased vaginal bleeding, worsening abdominal pain. Pelvic rest and activity precautions reviewed as well. She is discharged on 05/01/23 in stable condition. Information Peripartum Data: Infant Delivery Method: Vaginal Physical Exam Const: COMMON NORMALS: no acute distress, alert and well nourished Resp: COMMON NORMALS: normal respiratory effort, No retractions and clear to auscultation bilaterally AUSCULTATION: clear to auscultation bilaterally Cardio: COMMON NORMALS: regular rate, regular rhythm, S1 normal heart sound present, S2 normal heart sound present and No murmurs present (Cardio) RATE: regular rate RHYTHM: regular rhythm HEART SOUNDS: S1 normal heart sound present and S2 normal heart sound present : EXTERNAL FEMALE EXAM: Yes other (on external examination with shallow ulcers on right side of labia ) OTHER: Fundus firm and below the umbilicus Extremity: NARRATIVE EXTREMITY EXAM: No LE edema Neuro: SENSORIUM/ORIENTATION: Yes alert Urinary Catheter Management: Coyle: Cath Placed During This Visit: yes, but has since been removed by the nurse Reason for Continuing Indwelling Catheter: Decision to DC Catheter Urinary Catheter Date of Insertion: 04/29/23 Urinary Catheter Time of Insertion: 06:00 Date Urinary Catheter Removed: 04/29/23 Time Urinary Catheter Discontinued: 09:29 History History History 2 Term 1 1 Miscarriages/Ectopic 0 Living Children 2 Discharge Data Studies Completed and Pending Pending at discharge Category Date Time Status Herpes Simplex Virus Culture Stat Lab 04/29/23 09:50 Received RPR with Reflex to Titer Routine Lab 04/30/23 18:57 Ordered Laboratory Results WBC 13.61 10^3/uL (3.29-11.43) H 04/29/23 21:40 RBC 3.89 10^6/uL (3.85-5.65) 04/29/23 21:40 Hgb 11.00 g/dL (11.27-16.99) L 04/29/23 21:40 Hct 34.3 % (36-47) L 04/29/23 21:40 MCV 88.2 fl (85-98) 04/29/23 21:40 MCH 28.3 pg (27-33) 04/29/23 21:40 MCHC 32.1 g/dL (30-55) 04/29/23 21:40 RDW 12.7 % (12.1-15.1) 04/29/23 21:40 Plt Count 378 10^3/cmm (157-399) 04/29/23 21:40 MPV 9.7 fL (7.4-10.4) 04/29/23 21:40 Neut % (Auto) 66.6 % 04/29/23 01:28 Lymph % (Auto) 23.8 % 04/29/23 01:28 Antelope % (Auto) 6.9 % 04/29/23 01:28 Eos % (Auto) 0.5 % 04/29/23 01:28 Baso % (Auto) 0.5 % 04/29/23 01:28 Neut # (Auto) 8.63 10^3/uL (1.8-7.7) H 04/29/23 01:28 Lymph # (Auto) 3.1 10^3/uL (0.8-4.8) 04/29/23 01:28 Antelope # (Auto) 0.9 10^3/uL (0.2-0.9) 04/29/23 01:28 Eos # (Auto) 0.1 10^3/uL (0.0-0.8) 04/29/23 01:28 Baso # (Auto) 0.1 10^3/uL (0.0-0.1) 04/29/23 01:28 Nucleated RBC % (auto) 0 % 04/29/23 01:28 Nucleated RBCs # 0.0 /100WBC 04/29/23 01:28 Urine Opiates Screen Negative ng/mL (Negative) 04/29/23 01:52 Ur Barbiturates Screen Negative ng/mL (Negative) 04/29/23 01:52 Ur Phencyclidine Scrn Negative ng/mL (Negative) 04/29/23 01:52 Ur Amphetamines Screen Negative ng/mL (Negative) 04/29/23 01:52 U Benzodiazepines Scrn Negative ng/mL (Negative) 04/29/23 01:52 Urine Cocaine Screen Negative ng/mL (Negative) 04/29/23 01:52 U Marijuana (THC) Screen Negative ng/mL (Negative) 04/29/23 01:52 HSV I IgG Ab <0.90 index 04/29/23 10:35 HSV II IgG 7.60 index H 04/29/23 10:35 Blood Type A Positive 11/26/23 01:28 Rho(D) Type Rh positive 04/29/23 01:28 Antibody Screen Negative 04/29/23 01:28 Vitals Last Vital Signs Temp 98.4 F 05/01/23 09:20 Pulse 80 05/01/23 09:20 Resp 15 05/01/23 09:20 BP 100/55 05/01/23 09:20 Pulse Ox 98 04/30/23 22:00 O2 Del Method Room Air 04/30/23 22:00 Results Labs OB ([facility]): Obstetrics US 02/02/23 Blood Type A Positive 04/29/23 Antibody Screen Negative 04/29/23 Hct 34.3 % (36-47) L 04/29/23 Hgb 11.00 g/dL (11.27-16.99) L 04/29/23 Rho(D) Type Rh positive 04/29/23 Plt Count 378 10^3/cmm (157-399) 04/29/23 Hep Bs Antigen Non-reactive (Nonreactive) 05/03/20 Hepatitis C Antibody Non-reactive (Nonreactive) 05/03/20 Rubella IgG Antibody 41.6 IU/mL (0.0-10.0) H 05/03/20 RPR Nonreactive (Nonreactive) 04/29/23 HIV 1&2 Ab & HIV 1 Ag Non-reactive (Non-Reactiv) 05/03/20 TSH 1.39 uIU/mL (0.27-4.20) 10/15/20 Gest Glucose Tolerance mg/dL 08/25/20 VZV IgG Antibody 578.40 index 07/12/20 HCG, Qual Negative (Negative) 04/05/22 Urine Opiates Screen Negative ng/mL (Negative) 04/29/23 Ur Barbiturates Screen Negative ng/mL (Negative) 04/29/23 Ur Phencyclidine Scrn Negative ng/mL (Negative) 04/29/23 Ur Amphetamines Screen Negative ng/mL (Negative) 04/29/23 U Benzodiazepines Scrn Negative ng/mL (Negative) 04/29/23 Urine Cocaine Screen Negative ng/mL (Negative) 04/29/23 U Marijuana (THC) Screen Negative ng/mL (Negative) 04/29/23 Micro Urine Specimen 11/02/20 Discharge Plan Discharge Patient Disposition: Home Condition: Stable Prescriptions: New ibuprofen 800 mg Tablet 800 mg PO TID Qty: 90 0RF acyclovir 400 mg Tablet 400 mg PO TID 5 Days Qty: 15 0RF docusate sodium 100 mg Capsule 100 mg PO BID Qty: 90 0RF Continued tablet 1 tab PO DAILY Discharge Orders: Discharge Order (Routine); Ordered 05/01/23 Ordered By: Candi Live Referrals: Candi Live DO [Physician] - 05/15/23 2:45 pm Discharge Diet: Regular Discharge Activity: Increase activity as tolerated Patient Instructions: Ibuprofen (By mouth) (Advil, Advil Children's, Motrin, Children's..., Acyclovir (By mouth) (Zovirax), Laxative, Stool Softeners (By mouth) (Doculax, Colace, Colace Clear, DSS), Depression (DC), Preeclampsia and Eclampsia After Delivery (GEN), Hemorrhage (GEN), OB Discharge Report, OB Food/Drug Interaction Guide, OB Care at Home, Opioid Safety, OB Home Care, OB Vaginal Deliveries, Abnormal Bleeding Activity Restrictions/Additional Instructions: Pelvic rest for 6 weeks. Follow-up with Dr. Live at 2 and 6 weeks . 2 WEEK FOLLOW UP 05/15/23 @ 2:45PM 6 WEEK FOLLOW UP 06/19/23 @ 3:00PM Discharge Attestations VICE PRESIDENT CLIENT SERVICES Time Spent in Discharge Care*: greater than 30 min Coding Level of Care Code Acute Code for Chg Fwd Diagnoses Spontaneous vaginal delivery O80 Herpes simplex virus (HSV) infection of vagina A60.04
[2023-05-01] MEDS: acyclovir 400 mg Tablet PO ×2 (10:27→15:51)
[2023-05-01 15:52] VITALS: BP 109/70; PULSE 71; RESP 15; TEMP 36.9
[2023-05-01 16:00] VITALS: BP 109/70; PULSE 71; RESP 15; TEMP 36.9
[2023-05-02 10:32] LABS: Rapid Plasma Reagin Syphilis Nonreactive (Nonreactive)
== END 2023-05-01 16:00 | disposition home or self-care (01) | DRG 806 ==
LOC: OPOB 03:27 → OBGYN 03:27
PROVIDERS: Admitting Provider Family Medicine; PCP Family Medicine; Visit Provider Family Medicine
DX: O76 Abnormality in fetal heart rate and rhythm complicating labor and delivery (principal); O98.52 Other viral diseases complicating childbirth; Z37.0 Single live birth; B00.9 Herpesviral infection, unspecified; Z3A.37 37 weeks gestation of pregnancy
CPT/HCPCS: 36415; 51702; 59025; 59409; 80306; 83986; 85025; 85027; 86592; 86695; 86696; 86850; 86900; 87255; 96374; 98960; 99211; J2405; J2590; J2795; J7120; J7121; J8499

== ENCOUNTER 2023-05-14 11:54 | Outpatient (CLI) | payer MEDICAID, SELFPAY ==
[2023-05-14 13:12] LABS: Basophils % 0.4 %; Eosinophils # 0.2 10^3/uL (0.0-0.8); Eosinophils % 1.7 %; Hematocrit 46.3 % (36-47); Lymphocytes # 2.6 10^3/uL (0.8-4.8); Lymphocytes % 27.7 %; Mean Corpuscular HGB Conc 31.5 g/dL (30-55); Mean Corpuscular Hemoglobin 27.3 pg (27-33); Mean Corpuscular Volume 86.5 fl (85-98); Mean Platelet Volume 9.1 fL (7.4-10.4); Monocytes # 0.7 10^3/uL (0.2-0.9); Monocytes % 7.2 %; Neutrophils # 5.86 10^3/uL (1.8-7.7); Neutrophils % 61.7 %; Nucleated Red Blood Cells % 0 %; Platelet Count 475 10^3/cmm (157-399); Red Blood Count 5.35 10^6/uL (3.85-5.65); White Blood Count 9.49 10^3/uL (3.29-11.43)
[2023-05-14 13:33] LABS: Urine Creatinine 215 mg/dL (28-217)
[2023-05-14 13:35] LABS: Alanine Aminotransferase 17 U/L (0-33); Albumin Level 4.3 g/dL (3.5-5.2); Alkaline Phosphatase 157 U/L (35-105); Aspartate Amino Transferase 16 U/L (0-32); Blood Urea Nitrogen 12 mg/dL (6-20); Calcium 9.6 mg/dL (8.5-10.5); Carbon Dioxide 24 mmol/L (22-29); Chloride 104 mmol/L (98-107); Globulin 3.6 g/dL (1.3-4.6); Glomerular Filtration Rate 126.2 mL/min (90-130); Glucose 78 mg/dL (65-115); Osmolality Calculated 287 mOsm/kg (285-295); Sodium 139 mmol/L (136-145); Total Bilirubin 0.3 mg/dL (0.15-1.2); Total Protein 7.9 g/dL (6.6-8.7); Uric Acid 4.2 mg/dL (2.4-5.7)
[2023-05-14 13:44] LABS: Urine Protein Random 21 mg/dL
== END 2023-05-14 11:55 | disposition home or self-care (01) ==
PROVIDERS: PCP Family Medicine; Visit Provider Family Medicine
DX: O90.89 Other complications of the puerperium, not elsewhere classified (principal); R03.0 Elevated blood-pressure reading, without diagnosis of hypertension
CPT/HCPCS: 36415; 80053; 82570; 84156; 84550; 85025

== ENCOUNTER 2024-04-11 08:42 | Outpatient (CLI) | payer MEDICAID, SELFPAY ==
--- NOTE | 2024-04-11 08:45 | MR_ITS ---
WS: [id number] MRI BRAIN WITH AND WITHOUT CONTRAST HISTORY: G37.9 - Demyelinating disease of central nervous system, ... COMPARISON: 07/28/2019 TECHNIQUE: Multiplanar imaging performed through the brain with MultiHance 9 ml's IV. No acute infarct. Diffusion imaging is normal. Multiple FLAIR and T2 hyperintensities in both round a nd ovoid configurations are noted bilaterally in the white matter. Some of these are in a perpendicul ar distribution and closely associated with the pericallosal junction. No progression of demyelinatin g lesions identified. The lesions are more conspicuous on the prior study from 07/28/2019 but this is probably due to imaging technique. No hemorrhage. No enhancement. No susceptibility artifacts or prior lacunar infarcts. Ventricles and extra-axial spaces are normal. Clivus and pituitary gland are normal. Visualized posterior fossa and brainstem are also normal. Postcontrast images are negative for masses or vascular malformations. Dural venous sinuses are normal. Paranasal sinuses: Well aerated with no significant disease. Mastoid air cells: Normal. Calvarium and scalp: Normal. MR/MR head wo/w con [id number] IMPRESSION: 1. No acute infarct, hemorrhage or enhancement. 2. Stable demyelinating plaques in the supratentorial brain. Distribution cons istent with multiple sclerosis. No progression of demyelination or enhancement.
[2024-04-11] MEDS: gadobenate dimeglumine 20 mL vial 9 ML IV (09:41)
== END 2024-04-11 08:43 | disposition home or self-care (01) ==
LOC: RAD 08:42
PROVIDERS: PCP Family Medicine; Visit Provider Specialist
DX: G37.9 Demyelinating disease of central nervous system, unspecified (principal)
CPT/HCPCS: 70553; A9577